=== PATIENT | female | born 1985 | race Caucasian/White ===

== ENCOUNTER → 2018-02-15 | Outpatient (CLI) | payer OTHER | END | disposition home or self-care (01) | LOC: CFH 11:11 | PROVIDERS: ATTEND Family Medicine | DX: M25.561 Pain in right knee (principal) ==

== ENCOUNTER 2019-05-20 00:37 | Inpatient (IN) | payer OTHER ==
[~2019-05-20] VITALS: Ht 165.1 cm; Wt 81.8 kg
[2019-05-20] MEDS ORDERED: FENTANYL/BUPIV./NS/PF 250 ML EPIDCONT SCH (00:47)
[2019-05-20] MEDS ORDERED: LACTATED RINGERS 1,000 ML IV SCH ×2 (00:47)
[2019-05-20] MEDS ORDERED: D5%-LACTATED RINGERS 1,000 ML IV SCH (00:47)
[2019-05-20] MEDS ORDERED: OXYTOCIN 30U/ 0.9% NaCL 500ML 500 ML IV ONE (00:47)
[2019-05-20] MEDS ORDERED: ONDANSETRON 2MG/ML, 2ML IVPush PRN (01:00)
[2019-05-20] MEDS ORDERED: PLEASE ENTER ALLERGIES MC SCH (01:00)
[2019-05-20] MEDS ORDERED: FENTANYL PF 100 MCG/2ML IV PRN (01:00)
[2019-05-20] MEDS ORDERED: TERBUTALINE 1 MG/ML, 1ML IVPush PRN (01:00)
[2019-05-20] MEDS ORDERED: LACTATED RINGERS 1,000 ML IVBOLUS PRN (01:00)
[2019-05-20] MEDS ORDERED: TERBUTALINE 1 MG/ML, 1ML SQ PRN (01:00)
[2019-05-20] MEDS ORDERED: LIDOCAINE 1%, 20ML ONE ×2 (01:00→02:02)
[2019-05-20] MEDS ORDERED: CALCIUM CARBONATE 500 MG TAB.CHEW PO PRN (01:00)
[2019-05-20] MEDS ORDERED: EPHEDRINE 50 MG/ML, 1ML IVPush PRN (01:00)
[2019-05-20] MEDS ORDERED: NEWBORN KIT ONE (01:00)
[2019-05-20] MEDS ORDERED: MISOPROSTOL 200 MCG TABLET ONE (01:01)
[2019-05-20] MEDS ORDERED: OXYTOCIN 30U/ 0.9% NaCL 500ML 500 ML ONE ×2 (01:01→02:21)
[2019-05-20] MEDS ORDERED: FENTANYL PF 100 MCG/2ML ONE ×2 (01:01→02:14)
[2019-05-20] MEDS: FENTANYL PF 100 MCG/2ML IVPush PRN ×2 (01:04→02:20)
[2019-05-20 01:15] VITALS: BP 111/65
[2019-05-20] MEDS ORDERED: FENTANYL/BUPIV./NS/PF 250 ML EPIDCONT ONE (01:27)
[2019-05-20 01:35] LABS: BASOPHILS # (AUTO) 0.07 x10^3/uL (0-0.1); BASOPHILS % (AUTO) 1 % (0-1); EOSINOPHILS % (AUTO) 1 % (1-7); LYMPHOCYTES # (AUTO) 2.13 x10^3/uL (1-3.4); LYMPHOCYTES % (AUTO) 20 % (22-44); MD NO; MEAN CORPUSCULAR HEMOGLOBIN 30.1 pg (27.0-34.8); MEAN CORPUSCULAR HGB CONC 33.3 g/dL (32.4-35.8); MEAN CORPUSCULAR VOLUME 90.6 fL (80-100); MEAN PLATELET VOLUME 10.4 fL (7.4-10.4); MONOCYTES # (AUTO) 1.16 x10^3/uL (0.2-0.8); MONOCYTES % (AUTO) 11 % (2-9); NEUTROPHILS # (AUTO) 7.43 x10^3/uL (1.8-6.8); NEUTROPHILS % (AUTO) 68 % (42-75); PLATELET COUNT 192 x10^3/uL (130-400); RED BLOOD COUNT 4.26 x10^6/uL (3.82-5.3); RED CELL DISTRIBUTION WIDTH 12.8 % (9.6-15.2)
[2019-05-20] MEDS ORDERED: BUPIVACAINE 0.25% ONE (01:40)
[2019-05-20] MEDS ORDERED: IBUPROFEN 600 MG TABLET ONE (02:21)
[2019-05-20] MEDS: OXYTOCIN 30U/ 0.9% NaCL 500ML 500 ML IV SCH ×3 (02:54→22:35)
[2019-05-20] MEDS ORDERED: OXYcodone/APAP 5/325MG TABLET PO PRN (03:00)
[2019-05-20] MEDS ORDERED: ONDANSETRON 2MG/ML, 2ML IV PRN (03:00)
[2019-05-20] MEDS ORDERED: OXYcodone IR 5MG TABLET PO PRN (03:00)
[2019-05-20] MEDS ORDERED: CARBOPROST TROMETHAMINE 250 MCG/ML, 1ML IM PRN (03:00)
[2019-05-20] MEDS ORDERED: METOCLOPRAMIDE 5 MG/ML, 2ML IV PRN (03:00)
[2019-05-20] MEDS ORDERED: ACETAMINOPHEN 325 MG TABLET PO PRN (03:00)
[2019-05-20] MEDS ORDERED: METHYLERGONOVINE 0.2 MG/ML IM PRN (03:00)
[2019-05-20] MEDS ORDERED: DOCUSATE 100 MG CAPSULE PO PRN (03:00)
[2019-05-20] MEDS ORDERED: SIMETHICONE 80 MG CHEW TAB PO PRN (03:00)
[2019-05-20] MEDS ORDERED: MISOPROSTOL 200 MCG TABLET PR PRN (03:00)
[2019-05-20] MEDS: IBUPROFEN 600 MG TABLET PO PRN ×3 (03:14→17:58)
[2019-05-20 04:30] VITALS: BP 104/65
[2019-05-20] MEDS: LEVOTHYROXINE 25 MCG TABLET PO SCH (06:31)
[2019-05-20] MEDS: OXYcodone/APAP 5/325MG TABLET PO PRN ×2 (06:45→11:08)
[2019-05-20 07:45] VITALS: BP 109/67
[2019-05-20] MEDS: PRENATAL VIT/IRON/FA 1 EACH TABLET PO SCH ×2 (09:00→10:04)
[2019-05-20 11:21] LABS: MEAN CORPUSCULAR HEMOGLOBIN 30.4 pg (27.0-34.8); MEAN CORPUSCULAR HGB CONC 33.4 g/dL (32.4-35.8); MEAN CORPUSCULAR VOLUME 90.8 fL (80-100); MEAN PLATELET VOLUME 9.2 fL (7.4-10.4); PLATELET COUNT 199 x10^3/uL (130-400); RED BLOOD COUNT 4.26 x10^6/uL (3.82-5.3); RED CELL DISTRIBUTION WIDTH 12.5 % (9.6-15.2)
[2019-05-20 11:37] LABS: BASOPHILS # (AUTO) 0.08 x10^3/uL (0-0.1); BASOPHILS % (AUTO) 1 % (0-1); EOSINOPHILS # (AUTO) 0.03 x10^3/uL (0-0.4); EOSINOPHILS % (AUTO) 0 % (1-7); LYMPHOCYTES # (AUTO) 2.14 x10^3/uL (1-3.4); LYMPHOCYTES % (AUTO) 14 % (22-44); MD SCAN; MONOCYTES # (AUTO) 1.39 x10^3/uL (0.2-0.8); MONOCYTES % (AUTO) 9 % (2-9); NEUTROPHILS % (AUTO) 76 % (42-75)
[2019-05-20 12:00] VITALS: BP 112/67
[2019-05-20 16:30] VITALS: BP 100/68
[2019-05-20 21:50] VITALS: BP 104/65
[2019-05-21 02:35] VITALS: BP 100/62
[2019-05-21] MEDS: IBUPROFEN 600 MG TABLET PO PRN (02:45)
[2019-05-21] MEDS: OXYcodone/APAP 5/325MG TABLET PO PRN (03:31)
[2019-05-21] MEDS: LEVOTHYROXINE 25 MCG TABLET PO SCH (05:41)
[2019-05-21 07:00] VITALS: BP 97/62
[2019-05-21] MEDS: OXYTOCIN 30U/ 0.9% NaCL 500ML 500 ML IV SCH (08:35)
[2019-05-21] MEDS ORDERED: IBUP200T49 PO (10:43)
[2019-05-21] MEDS ORDERED: OXYC-302 PO (10:44)
== END 2019-05-21 14:06 | disposition home or self-care (01) | DRG 807 ==
LOC: LDOP 00:37 → LDIP 00:49 → 2NW 04:19
PROVIDERS: ADMIT Obstetrics & Gynecology; ATTEND Obstetrics & Gynecology
PROC: 10E0XZZ Delivery of Products of Conception, External Approach (ICD-10-PCS; principal; 2019-05-20)
PROC: 10907ZC Drainage of Amniotic Fluid, Therapeutic from Products of Conception, Via Natural or Artificial Opening (ICD-10-PCS; 2019-05-20)
PROC: 0HQ9XZZ Repair Perineum Skin, External Approach (ICD-10-PCS; 2019-05-20)
DX: O77.0 Labor and delivery complicated by meconium in amniotic fluid (principal); Z37.0 Single live birth; E03.9 Hypothyroidism, unspecified; O48.0 Post-term pregnancy; O70.0 First degree perineal laceration during delivery; O76 Abnormality in fetal heart rate and rhythm complicating labor and delivery; O99.284 Endocrine, nutritional and metabolic diseases complicating childbirth; Z3A.41 41 weeks gestation of pregnancy
CPT/HCPCS: 36415; 82803; 85025; 86592; 86850; 86900; G0378; J3010; J2590; J7120